=== PATIENT | male | born 1980 | race Caucasian/White ===

== ENCOUNTER 2018-09-23 01:54 | Emergency (ER) | payer SELFPAY ==
[~2018-09-23] VITALS: Ht 175.3 cm; Wt 95.3 kg
--- OUTSIDE RECORDS SUMMARY | 2018-09-23 01:57 | XMS REPORT ---
Author Author [facility] Address Unknown Phone Unavailable Care Team Providers Care Manager Hotel Name Role Phone Unavailable Unavailable Payers Payer Name Policy Type Policy Number Effective Date Expiration Date Problems This patient has no known problems. Allergies, Adverse Reactions, Alerts Allergy Name Allergy Type Status Severity Reaction(s) Onset Date Inactive Date Treating Clinician Comments banana DA Active [place] 2018-03-18 00:00:00 apple DA Active [place] 2018-03-18 00:00:00 almond DA Active [place] 2018-03-18 00:00:00 AVACADO DA Active [place] 2018-03-18 00:00:00 PECANS DA Active U 2018-03-18 00:00:00 No Known Allergies DA Active [place] 2018-02-14 00:00:00 Medications This patient has no known medications.
[2018-09-23] MEDS ORDERED: ZOLOFT50 MG PO (02:07)
[2018-09-23 02:35] VITALS: BP 143/97
== END 2018-09-23 02:30 | disposition home or self-care (01) ==
LOC: FSED 01:54
DX: M54.2 Cervicalgia (principal); V43.52XA Car driver injured in collision with other type car in traffic accident, initial encounter; Y92.89 Other specified places as the place of occurrence of the external cause; I10 Essential (primary) hypertension
CPT/HCPCS: 99282